=== PATIENT | male | born 1960 | race Caucasian/White ===

== ENCOUNTER 2018-12-28 11:17 | Emergency (ER) | payer OTHER ==
[2018-12-28] MEDS: KETOROLAC 30 MG INJ IM (13:11)
== END 2018-12-28 14:06 | disposition home or self-care (01) ==
LOC: E/R 11:17
DX: I77.9 Disorder of arteries and arterioles, unspecified (principal); I10 Essential (primary) hypertension; F17.210 Nicotine dependence, cigarettes, uncomplicated; E11.9 Type 2 diabetes mellitus without complications; Z79.84 Long term (current) use of oral hypoglycemic drugs
CPT/HCPCS: 73630; 99283-25